=== PATIENT | female | born 1985 | race Caucasian/White ===

== ENCOUNTER 2019-03-22 16:53 | Outpatient (CLI) | payer OTHER ==
[~2019-03-22] VITALS: Ht 160 cm; Wt 73.0 kg
[~2019-03-22 16:53] MED LIST: NO HOME MEDICATIONS; PERCOCET 325 MG1 TA2 PO
[2019-03-22 17:06] VITALS: BP 108/68; PULSE 78; TEMP 98.4
--- NOTE | 2019-03-22 17:25 | NUR ---
1650 PATIENT HERE FROM OFFICE FOR NONSTRESS TEST. REACTIVE STRIP NOTED AND DR MORGAN CALLED. ORDERSS TO DISMISS HOME. 1720 ALL DISCHARGE INSTRUCTINS GIVEN WITH VERBAL UNDERSTANDING NOTED.
== END 2019-03-22 17:27 | disposition home or self-care (01) ==
LOC: LDRO 16:53
DX: O36.8330 Maternal care for abnormalities of the fetal heart rate or rhythm, third trimester, not applicable or unspecified (principal); Z3A.39 39 weeks gestation of pregnancy

== ENCOUNTER 2019-03-29 02:03 | Inpatient (IN) | payer OTHER ==
[~2019-03-29] VITALS: Ht 160 cm; Wt 73.6 kg
[2019-03-29] VITALS (46 sets, daily range): BP systolic 97–153; BP diastolic 59–85; PULSE 51–96; TEMP 97.5–98.2
--- NOTE | 2019-03-29 02:10 | NUR ---
G2L0. 40-5. Ambulatory to LDR 4 with spouse. Clean gown on. EFM and TOCO explained and placed. Pt states she has been patricia for the past 2 hours, contractions are 3-5minutes apart. Denies LOF or vaginal bleeding. Reports good movement. SVE /-2. VS and assessment completed. 0220: updated on pts status. See physican notification. 0230: IV started and labs obtained via IV site. LR bolus infusing without difficulties. Pt requesting epidural. Luis E ENGINEER REMOTE CONTROL DIESEL notified. Plan of care explained to pt and questions answered.
[2019-03-29] MEDS ORDERED: PRENATAL MVI PO (02:20)
[2019-03-29 02:56] LABS: BASO % 0.4 % (0.0-2.0); EOS # 0.1 (0.0-0.7); EOS % 0.6 % (0-4.0); GRAN % 62.4 % (42.2-75.2); HEMATOCRIT 40.4 % (37.0-47.0); HEMOGLOBIN 14.1 g/dl (12.5-16.0); LYMPH # 3.3 (1.2-3.4); MEAN CELL VOLUME 94 fl (80.0-100.0); MEAN CORPUSCULAR HEMOGLOBIN 33 pg (27.0-31.0); MEAN CORPUSCULAR HGB CONC 35 g/dl (33.0-37.0); MEAN PLATELET VOLUME 11.9 fl (7.4-10.4); MONO # 0.8 (0.1-0.6); PLATELET COUNT 177 K/mm3 (130-400); RED BLOOD COUNT 4.29 M/mm3 (4.10-5.30); REDCELL DISTRIBUTION WIDTH-CV 12.7 % (11.5-14.5)
--- NOTE | 2019-03-29 02:56 | NUR ---
Luis E TANKER TRUCK DRIVER at bedside for epidural placement, procedure explained to pt. Pt assisted to EOB. Difficulty tracing FHR due to maternal position. RN at bedside adjusting monitors. Puls ox applied and tracing. 0303: Single shot administered by Luis E TANKER TRUCK DRIVER. See anesthesia records. 0308: Pt assisted to wedge right position per request. Plan of care and safety precautions explained to pt and who verbalize understanding. Call light within reach.
--- NOTE | 2019-03-29 11:15 | NUR ---
SVE per this RN C/+1. Practice push performed. Moves vertex well. Dr. Liu notified. See physician notification. Pt prepped for delivery. Begins pushing with this RN. 1128-Dr. Liu at bedside. Begins pushing with patient. 1149- of viable male infant attended by Dr. Liu. Nuchal cord x1. Cord clamped x 2 and cut from umbilicus. Infant dried and placed on mother's abdomen. Apgars 8/9/9. Care of infant to Lisandra Zabala RN. 1152- of placenta. Fundus firm at umibilicus. Bleeding WNL. Pitocin infusing per protocol. Second degree laceration repair performed by physician. Pericare performed. Ice pack applied. Bed locked in low position. Call light within reach. Updated on POC. Safety reviewed. No questions or concerns at this time.
[2019-03-30 04:20] VITALS: BP 115/83; PULSE 75; TEMP 97.7
[2019-03-30 08:31] LABS: HEMATOCRIT 34.7 % (37.0-47.0); HEMOGLOBIN 11.7 g/dl (12.5-16.0)
--- NOTE | 2019-03-30 09:56 | NUR ---
Initial visit; Parents thanked Otr Driver for offering congratulations and God's blessings for the of their son. Otr Driver thanked family for choosing [facility].
[2019-03-30 10:27] VITALS: BP 119/67; PULSE 70; TEMP 97.5
[2019-03-30] MEDS ORDERED: IBU600 MG PO (11:48)
--- NOTE | 2019-03-30 16:30 | NUR ---
Discharge instructions given, pt verbalizes understanding. No further questions noted. Bands matched and hugs tag removed.
== END 2019-03-30 17:00 | disposition home or self-care (01) | DRG 807 ==
LOC: LDRO 02:03 → LDR 02:24 → OB 02:24
PROVIDERS: Obstetrics & Gynecology; ADMIT Obstetrics & Gynecology
PROC: 10E0XZZ Delivery of Products of Conception, External Approach (ICD-10-PCS; principal; 2019-03-29)
PROC: 0KQM0ZZ Repair Perineum Muscle, Open Approach (ICD-10-PCS; 2019-03-29)
PROC: 10907ZC Drainage of Amniotic Fluid, Therapeutic from Products of Conception, Via Natural or Artificial Opening (ICD-10-PCS; 2019-03-29)
DX: O70.1 Second degree perineal laceration during delivery (principal); Z37.0 Single live birth; Z3A.40 40 weeks gestation of pregnancy
CPT/HCPCS: J2590; J2795; J7120

== ENCOUNTER → 2019-05-10 | Outpatient (CLI) | payer OTHER ==
[~2019-05-10] MED LIST changes: +IBU600 MG PO; +PRENATAL MVI PO
--- NOTE | 2019-05-10 12:41 | NUR ---
Pt, Michelle Falguni presents to walk-in clinic with 6 week old baby boy, Zuleyka Montes De Oca, for an evaluation for ongoing pain in the right nipple. Zuleyka was born on [birth year] and weighed 6#1.1oz (3065 gms). His weight gain has been WNL. The scale used in clinic today had a low battery and prefed weight was inaccuarte. After his weight was 10#4.8oz. We were able to verify gain from the second breast was 46gms, and he went to first breast again so LC could verify latch again, and had an additional gain of 12 gms. Estimated total intake is 3-3.5oz. Pt's right nipple appears normal before latch, after latching there is a layer of skin that is lifted, so suspect is not keeping nipple as far back in mouth as desired. Discussed different positions that may alieviate the pain, and suggested use of warm compress after baby unlatches, to help diagnose or eliminate Raynauds Syndrome. A white patch is becoming visable after baby is off breast ~5-10 minutes, so could be circulatory. Because nipple color is normal prior to feeding, and pain has been continuous from the begining, less likely to be thrush. If pt does not find relief with warm compress, she is to follow up with LC. POC: Apply warm compress to right nipple and areola after each , for 15-20 minutes. F/U: as needed. Questions invited and answered.
== END ==
LOC: LAC 11:09
DX: Z39.1 Encounter for care and examination of lactating mother (principal); Z71.89 Other specified counseling

== ENCOUNTER 2019-12-21 15:55 | Emergency (ER) | payer OTHER ==
[~2019-12-21] VITALS: Ht 160 cm; Wt 68.2 kg
[2019-12-21 15:58] VITALS: TEMP 97.6
[2019-12-21 16:33] LABS: BASO % 0.3 % (0.0-2.0); EOS % 0.1 % (0-4.0); GRAN # 12.4 (1.4-6.5); GRAN % 86.2 % (42.2-75.2); HEMATOCRIT 42.4 % (37.0-47.0); HEMOGLOBIN 14.1 g/dl (12.5-16.0); LYMPH # 1.1 (1.2-3.4); LYMPH % 7.6 % (20.0-51.0); MEAN CELL VOLUME 92 fl (80.0-100.0); MEAN CORPUSCULAR HEMOGLOBIN 31 pg (27.0-31.0); MEAN CORPUSCULAR HGB CONC 33 g/dl (33.0-37.0); MEAN PLATELET VOLUME 9.9 fl (7.4-10.4); MONO # 0.8 (0.1-0.6); MONO % 5.5 % (1.7-9.3); PLATELET COUNT 225 K/mm3 (130-400); RED BLOOD COUNT 4.59 M/mm3 (4.10-5.30)
[2019-12-21 16:44] LABS: ALBUMIN 4.9 gm/dL (3.5-5.0); BILIRUBIN,TOTAL 0.7 mg/dL (0.0-1.0); CALCIUM 9.4 mg/dL (8.4-10.2); CREATININE, serum 0.74 (0.52-1.25); POTASSIUM 3.9 mmol/L (3.4-5.0); TOTAL PROTEIN 8.4 gm/dL (6.4-8.2)
[2019-12-21 17:27] LABS: COLLECTION METHOD CLEAN CATCH
[2019-12-21 18:04] LABS: MUCOUS Present /lpf; SQUAMOUS EPITHELIAL 0-2 /hpf; URINE BACTERIA Rare /hpf; URINE RBC 0-2 /hpf
[2019-12-21 18:28] LABS: PH 5 (5-8); URINE APPEARANCE Clear; URINE COLOR Yellow
[2019-12-21 18:29] LABS: URINE BILIRUBIN Negative (NEGATIVE); URINE BLOOD Negative (NEGATIVE); URINE GLUCOSE Negative (NEGATIVE); URINE KETONE 1+ (NEGATIVE); URINE LEUKOCYTE ESTERASE Negative (NEGATIVE); URINE PROTEIN(semi-quant) 2+ (NEGATIVE)
[2019-12-21 18:30] LABS: URINE NITRATE Negative (NEGATIVE)
[2019-12-21 18:54] VITALS: BP 103/71; PULSE 74
== END 2019-12-21 18:58 | disposition home or self-care (01) ==
LOC: COL.ER 15:55
PROVIDERS: Emergency Medicine
DX: S06.0X0A Concussion without loss of consciousness, initial encounter (principal); S02.2XXA Fracture of nasal bones, initial encounter for closed fracture; S01.81XA Laceration without foreign body of other part of head, initial encounter; R55 Syncope and collapse; W19.XXXA Unspecified fall, initial encounter; W22.8XXA Striking against or struck by other objects, initial encounter
CPT/HCPCS: J2405; J7030

== ENCOUNTER 2020-12-21 03:39 | Inpatient (IN) | payer OTHER ==
[2020-12-21] VITALS (14 sets, daily range): BP systolic 87–118; BP diastolic 55–71; PULSE 59–86; TEMP 97.6–98.4
[~2020-12-21] VITALS: Ht 160 cm; Wt 76.8 kg
--- NOTE | 2020-12-21 03:45 | NUR ---
G3L1 at 40 weeks arrives to unit by wheelchair with complaint of contractions starting at 0200. Pt denies LOF or vaginal bleeding. Pt visibly very uncomfortable. Clean gown on. US and toco explained and applied. SVE with bulging bag of water. Vital signs obtained. Admission assessment started.
--- NOTE | 2020-12-21 03:55 | NUR ---
18G IV started in left forearm with 1 attempt. Admission labs obtained off IV start. Lactated ringers infusing to gravity. Kala Pryor CRNA notified to come to bedside for epidural.
--- NOTE | 2020-12-21 04:02 | NUR ---
0402 - LUZ Wooten at bedside. Pt counseled on epidural procedure, risks, and benefits, pt verbalized understanding. Pt positioned to sitting on edge of bed. 0406 - Single shot by LUZ Wooten. Pt denies any adverse reactions. 0408 - Test dose by Kal Pryor CRNA. Pt denies any adverse reactions. 0410 - Pt positioned to wedge left. Educated on fall risk and safety precautions. Bed in low and locked position. Call light within reach. See anesthesia record.
[2020-12-21 04:15] LABS: BASO % 0.4 % (0.0-2.0); EOS % 0.4 % (0-4.0); GRAN # 5.5 (1.4-6.5); GRAN % 54.2 % (42.2-75.2); HEMOGLOBIN 14.7 g/dl (12.5-16.0); LYMPH # 3.6 (1.2-3.4); LYMPH % 35.8 % (20.0-51.0); MEAN CELL VOLUME 94 fl (80.0-100.0); MEAN CORPUSCULAR HEMOGLOBIN 33 pg (27.0-31.0); MEAN CORPUSCULAR HGB CONC 35 g/dl (33.0-37.0); MONO # 0.9 (0.1-0.6); MONO % 8.5 % (1.7-9.3); PLATELET COUNT 229 K/mm3 (130-400); RED BLOOD COUNT 4.46 M/mm3 (4.10-5.30); REDCELL DISTRIBUTION WIDTH-CV 12.9 % (11.5-14.5)
--- NOTE | 2020-12-21 04:31 | NUR ---
0415 - Dr. Alston at bedside. AROM performed, large amount of clear fluid out. SVE /-2. Pt positioned in bed for comfort and plan of care reviewed. 0420 - Pt states she feels like baby is coming. Dr. Alston to bedside. SVE complete. Room set up for delivery. 0422 - Dr. Alston gowned and gloved at perineum. Pt positioned into footplates and educated on pushing techniques. 0425 - Initial push at this time. Nursery RN Shena Catalan at bedside. 0430 - bradycardia noted. 0431 - Spontaneous vaginal delivery of viable infant girl. placed to mothers abdomen, care of infant assumed to WALT Smith. Cord clamped x [address] Alston and cut by FOB. Cord blood obtained. 0435 - Spontaneous delivery of intact placenta. Fundal massage by Dr. Alston. Fundus down 2 from umbilicus and scant bleeding noted. Pitocin started at 333 mL/hr per protocol. 2nd degree perineal laceration repaired by Dr. Alston. EBL 200. 0445 - Pericare complete. Clean chux beneath. Ice pack to perineum. Pt positioned in bed for comfort. See physician delivery note.
[2020-12-21] MEDS ORDERED: PRENATAL TABLET PO (06:12)
[2020-12-22 00:15] VITALS: BP 102/66; PULSE 70; TEMP 97.5
[2020-12-22 04:30] VITALS: BP 111/85; PULSE 86; TEMP 97.8
[2020-12-22] MEDS ORDERED: MOTRIN 800800 MG/TAB PO (05:00)
[2020-12-22 07:43] VITALS: BP 96/65; PULSE 74; TEMP 98.6
[2020-12-22 12:00] VITALS: BP 128/72; PULSE 80; TEMP 98.2
== END 2020-12-22 13:40 | disposition home or self-care (01) | DRG 807 ==
LOC: LDRO 03:39 → LDR 03:55 → OB 07:30
PROVIDERS: ADMIT Student in an Organized Health Care Education/Training Program
PROC: 10E0XZZ Delivery of Products of Conception, External Approach (ICD-10-PCS; principal; 2020-12-21)
PROC: 0KQM0ZZ Repair Perineum Muscle, Open Approach (ICD-10-PCS; 2020-12-21)
PROC: 10907ZC Drainage of Amniotic Fluid, Therapeutic from Products of Conception, Via Natural or Artificial Opening (ICD-10-PCS; 2020-12-21)
DX: O48.0 Post-term pregnancy (principal); Z37.0 Single live birth; O62.3 Precipitate labor; Z3A.40 40 weeks gestation of pregnancy; O70.1 Second degree perineal laceration during delivery
CPT/HCPCS: J2590; J7120